=== PATIENT | female | born 1945 | race Caucasian/White ===

== ENCOUNTER 2017-05-20 08:44 | Outpatient (CLI) | payer OTHER ==
[~2017-05-20] VITALS: Ht 160 cm; Wt 54.4 kg
[~2017-05-20 08:44] MED LIST: ARICEPT5 MG PO; BEANO1 TAB PO; BONINE25 MG; CATAFLAM50 MG PO; CIPRO500 MG PO; CLONAZEPAM2 MG PO; CONZIP300 MG PO; DICLOFENAC POTA50 MG; DIGESTIVE ENZYM1 TAB PO; DULCOLAX5 MG PO; EFFEXOR XR150 MG PO; FLONASE16 GM; GABAPENTIN300 MG PO; GASTRACE CAPSU1 EACH; INTESTINEX1 CA1 PO; KETO10TA2; PHENYTOIN100 MG/4 M; PRUNELAX PO; SERTRALINE HCL100 MG; TRAM1TAB98 PO; TRAZODONE HCL50 MG PO; XANAX2 MG PO
== END 2017-05-20 09:00 | disposition home or self-care (01) ==
LOC: OFIC 805 08:44
DX: H66.93 Otitis media, unspecified, bilateral (principal); R09.81 Nasal congestion

== ENCOUNTER 2017-06-04 10:23 | Outpatient (CLI) | payer OTHER | END 2017-06-04 15:06 | disposition home or self-care (01) | LOC: RAD 10:23 | DX: J44.1 Chronic obstructive pulmonary disease with (acute) exacerbation (principal) ==

== ENCOUNTER → 2017-08-08 | Outpatient (CLI) | payer OTHER | END | disposition home or self-care (01) | LOC: MRI 07:56 | DX: M51.36 Other intervertebral disc degeneration, lumbar region (principal); M79.605 Pain in left leg ==

== ENCOUNTER 2017-10-02 11:46 | Outpatient (CLI) | payer OTHER | END 2017-10-02 13:33 | disposition home or self-care (01) | LOC: RAD 11:46 | DX: M54.5 Low back pain (principal) ==

== ENCOUNTER 2024-08-25 09:23 | Emergency (ER) | payer OTHER ==
[~2024-08-25] VITALS: Ht 152.4 cm; Wt 52.6 kg
[2024-08-25 09:34] VITALS: BP 98/61; O2SAT 96
[2024-08-25] MEDS ORDERED: KEPPRA100 MG/1 M (09:35)
[2024-08-25] MEDS ORDERED: LAMICTAL5 MG (09:35)
[2024-08-25] MEDS ORDERED: LORazepam 2 MG/ML VIAL IM SCH (09:58)
[2024-08-25 10:09] LABS: BASO % 0.8 % (0.1-1.2); EOS # 0.19 (0.04-0.54); EOS % 2.5 % (0.7-7.0); LYMPH # 1.83 (1.18-3.74); LYMPH % 24.1 % (19.3-53.1); MEAN PLATELET VOLUME 11.00 fl (9.4-12.4); MONO # 0.46 (0.24-0.82); MONO % 6.1 % (4.7-12.5); NEUT # 5.03 (1.56-6.13); NEUT % 66.2 % (34.0-71.1); RED CELL DISTRIBUTION WIDTH 12.4 % (11.6-14.4)
[2024-08-25 10:38] LABS: BUN CREA RATIO 8.0 (7.0-25.0); CREATININE SERUM 1.38 mg/dL (0.55-1.02); GFR 36.69; GLUCOSE FASTING 94.0 mg/dL (65-100); OSMOLALITY SERUM 288.0 MOSM/KG (275-295)
== END 2024-08-25 12:01 | disposition home or self-care (01) ==
LOC: ER 09:23
PROVIDERS: Emergency Medicine
DX: G40.89 Other seizures (principal)